=== PATIENT | female | born 1950 | race Caucasian/White ===

== ENCOUNTER → 2016-08-10 | Outpatient (CLI) | payer OTHER ==
[~2016-08-10] MED LIST: ASPIR 8181 M1 PO; CYCLOBENZAPRINE10 MG PO; VALSARTAN160 MG PO; VENLAFAXINE H37.5 M3 PO; VENLAFAXINE HC150 M1 PO; WOMEN'S DAILY1 EAC4 PO
[2016-08-10 09:25] LABS: HEMATOCRIT 32.2 % (36.0-46.0); IMMATURE GRANULOCYTE (%) 0.3 % (0.0-0.7); LYMPHOCYTE COUNT 1.5 K/uL (1.0-2.8); MCH 31.6 PG (29.0-34.0); MCHC 33.9 G/DL (30.0-36.0); MCV 93.3 FL (83-99); MEAN PLAT.VOLUME 10.5 uM^3 (9.5-12.4); MONOCYTE (%) 10.3 % (3-12); MONOCYTE COUNT 0.4 K/uL (0-0.8); NEUTROPHIL (%) 49.2 % (45-76); NEUTROPHIL COUNT 1.9 K/uL (1.8-6.4); PLATELET COUNT 206 K/uL (156-360); RBC DIS.WIDTH-CV 13.8 % (11.8-14.6); RBC DIS.WIDTH-SD 47.1 % (39-53); RED BLOOD COUNT 3.45 M/uL (3.80-5.20)
[2016-08-10 09:28] LABS: WHITE BLOOD COUNT 3.9 K/uL (4.1-10.2)
[2016-08-10 09:38] LABS: PROTHROMBIN TIME 10.2 (9.2-11.2); PTT 24.7 (25-32)
[2016-08-10 12:01] LABS: ANISOCYTOSIS 1+; EOSINOPHIL ABS CT 0.04; HYPOCHROMASIA 2+; MICROCYTOSIS 1+; PLAT.SUFFICIENCY ADEQUATE; USER ID TLW
[2016-08-12 13:13] LABS: Flow Number of Markers 24 (()); Flow Spec Viability 98 % (()); Flow Specimen Type BONE MARROW (())
== END | disposition home or self-care (01) ==
LOC: OPR 08:46 → EDSTATUS 09:00
PROVIDERS: Internal Medicine Hematology & Oncology
PROC: 07DS3ZX Extraction of Vertebral Bone Marrow, Percutaneous Approach, Diagnostic (ICD-10-PCS; principal; 2016-08-10)
DX: D75.9 Disease of blood and blood-forming organs, unspecified (principal); D47.2 Monoclonal gammopathy
CPT/HCPCS: 77012; 85025; 85610; 85730; 85999; 88184 90; 88185 90; 88189 90; 88237 90; 88264 90; 88280 90; 88291 90; J3010